=== PATIENT | male | born 1950 ===

== ENCOUNTER 2017-06-15 04:32 | Outpatient (CLI) | payer BC, MEDICARE | END 2017-06-15 23:59 | disposition home or self-care (01) | LOC: DIABETIC 04:32 | PROVIDERS: ATTEND Specialist | DX: E11.65 Type 2 diabetes mellitus with hyperglycemia (principal) | CPT/HCPCS: G0108 ==

== ENCOUNTER 2017-09-16 01:43 | Outpatient (CLI) | payer MEDICARE | END 2017-09-16 23:59 | disposition home or self-care (01) | LOC: DIABETIC 01:43 | PROVIDERS: ATTEND Specialist | DX: E11.65 Type 2 diabetes mellitus with hyperglycemia (principal) | CPT/HCPCS: G0108 ==

== ENCOUNTER 2017-12-13 02:22 | Outpatient (CLI) | payer MEDICARE | END 2017-12-13 23:59 | disposition home or self-care (01) | LOC: DIABETIC 02:22 | PROVIDERS: ATTEND Specialist | DX: E11.65 Type 2 diabetes mellitus with hyperglycemia (principal); Z91.018 Allergy to other foods; Z79.899 Other long term (current) drug therapy | CPT/HCPCS: G0108 ==

== ENCOUNTER 2018-04-27 02:33 | Outpatient (CLI) | payer MEDICARE | END 2018-04-27 23:59 | disposition home or self-care (01) | LOC: DIABETIC 02:33 | PROVIDERS: ATTEND Specialist | DX: E11.65 Type 2 diabetes mellitus with hyperglycemia (principal); Z79.84 Long term (current) use of oral hypoglycemic drugs; Z91.048 Other nonmedicinal substance allergy status | CPT/HCPCS: G0108 ==

== ENCOUNTER 2018-10-31 02:22 | Outpatient (CLI) | payer MEDICARE | END 2018-10-31 23:59 | disposition home or self-care (01) | LOC: DIABETIC 02:22 | PROVIDERS: ATTEND Specialist | DX: E11.65 Type 2 diabetes mellitus with hyperglycemia (principal); Z79.84 Long term (current) use of oral hypoglycemic drugs; Z79.899 Other long term (current) drug therapy; Z91.048 Other nonmedicinal substance allergy status | CPT/HCPCS: G0108 ==

== ENCOUNTER 2019-02-15 02:26 | Outpatient (CLI) | payer MEDICARE | END 2019-02-15 23:59 | disposition home or self-care (01) | LOC: DIABETIC 02:26 | PROVIDERS: ATTEND Specialist | DX: E11.65 Type 2 diabetes mellitus with hyperglycemia (principal); Z79.84 Long term (current) use of oral hypoglycemic drugs; Z79.899 Other long term (current) drug therapy; Z91.018 Allergy to other foods; Z91.048 Other nonmedicinal substance allergy status | CPT/HCPCS: G0108 ==